=== PATIENT | female | born 1990 | race Caucasian/White ===

== ENCOUNTER 2023-03-07 15:03 | Outpatient (AMB) | payer BC, MEDICAID, SELFPAY ==
--- NOTE | 2023-03-07 15:15 | AM.OFFWIN_ITS ---
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 Patient is reporting itchiness and redness at the tip of her nose. She noticed it a few days ago. It is slowly spreading to the top of her nose. No nasal discharge. No recent piercings. Does not use or abuse cocaine. [facility] Medical History (Updated 03/07/23 @ 15:53 by Lorenzo Lugo MD) Seasonal allergies Surgical History (Updated 02/24/20 @ 14:45 by GEOVANNA Farah) No pertinent past surgical history Family History (Updated 02/24/20 @ 14:46 by GEOVANNA Farah) Father No problems noted. Mother No problems noted. Family/Other History of substance abuse FHx: mental illness Depression Social History Patient Tobacco Use Status: Never used Tobacco Physical Exam Vital Signs: Last Vital Signs Temp 97.8 F 03/07/23 15:17 Pulse 65 03/07/23 15:17 BP 118/70 03/07/23 15:17 Pulse Ox 99 03/07/23 15:17 BMI result Body Mass Index 21.8 HEENT Other: Nose: Erythematous area at the tip of the nose. Nontender. No vesicles or pustules seen. Assessment & Plan Assessment & Plan (1) Rash: Code(s): R21 - Rash and other nonspecific skin eruption Plan: Most likely allergic in nature. Prednisone given. Should there be blisters or pain symptoms occur, herpes infection should be considered. Coding Level of Care Code Est Pt Level 3 (22991) Diagnoses Rash R21
[2023-03-07 15:17] VITALS: BP 118/70; PULSE 65; TEMP 36.6; O2SAT 99; BMI 21.8
== END 2023-03-07 15:58 | disposition home or self-care (01) ==
PROVIDERS: Visit Provider Internal Medicine
DX: R21 Rash and other nonspecific skin eruption (principal)
CPT/HCPCS: 99213

== ENCOUNTER 2024-05-24 09:13 | Outpatient (AMB) | payer BC, MEDICAID, SELFPAY ==
--- NOTE | 2024-05-24 09:57 | MHC.OFFWIV ---
Intake Vital Signs 05/24/24 09:58 Weight 165 lb BP 108/64 Blood Pressure Location Rt brachial Position Sitting Pulse 108 H Pulse Source Pulse Oximeter Temp 100 F Temp Source Oral Pulse Oximetry (%) 98 Oxygen Delivery Method Room Air Intake Visit Reasons: EP Strep? Sore throat Intake Note: Patient here for sore throat, body aches, chills which started Friday night. Patient Tobacco Use Status: Never used Tobacco Allergies No Known Allergies Allergy (Verified 05/24/24 09:58) Do you need a note to return to daycare/school/sports/work: Yes HPI HPI Comments History of Present Illness Details History - The patient is a 33-year-old female presenting with suspected Strep throat. - Symptoms such as a headache and fever started 2 days ago, followed by chills and sore throat the next day, noted with white exudates on one side. - Denied significant cough or exposure to known individuals with Strep. - Recent travel was acknowledged, yet no direct exposure connections were made. Physical Exam General: Cooperative, healthy appearing, comfortable and no acute distress Orientation/consciousness: Patient oriented x3 Limitations: No limitations Head: Normal to inspection Ears: Right ear looks really red, but not infected. Hearing grossly normal bilaterally, external ears normal and TM's normal bilaterally Nose: Normal external nose present, Normal nares present and No nasal discharge present Face and sinus: Normal facial exam Mouth: Normal oral and palatal mucosa present and moist mucous membranes Throat: Yes tonsils normal, Yes uvula midline. Posterior oropharynx erythema. exudates noted right side oropharynx Eyes: Appearance normal, both eyes and all related structures Neck: slight lymphadenopathy Respiratory: Normal respiratory effort, able to speak in complete sentences, not a lot of coughing, no respiratory distress, not tachypneic, no tripod positioning and no use of accessory muscles Skin: No rashes or lesions noted Neuro: Patient oriented x3 Extremities: Normal to inspection and Yes no clubbing, cyanosis or edema PFSH Medical History (Updated 05/24/24 @ 10:15 by Alva Florez PA-C) Seasonal allergies Surgical History (Updated 02/24/20 @ 14:45 by Yvonne Ayon) No pertinent past surgical history Family History (Updated 02/24/20 @ 14:46 by Yvonne Ayon) Father No problems noted. Mother No problems noted. Family/Other History of substance abuse FHx: mental illness Depression Social History Patient Tobacco Use Status: Never used Tobacco Review of Systems Const All systems reviewed & are unremarkable except as noted in HPI and below Physical Exam Vital Signs: Last Vital Signs Temp 100 F 05/24/24 09:58 Pulse 108 H 05/24/24 09:58 BP 108/64 05/24/24 09:58 Pulse Ox 98 05/24/24 09:58 Oxygen Delivery Method Room Air 05/24/24 09:58 Assessment & Plan Assessment & Plan (1) Acute streptococcal pharyngitis: Code(s): J02.0 - Streptococcal pharyngitis Plan: Centor criteria is 4, 52-53% chance of strep therefore I will make a presumptive diagnosis of Streptococcal pharyngitis. Despite a negative rapid test due to the combination of patient's symptoms and clinical exam findings anc centor criteria. An antibiotic, Amoxicillin, is prescribed for ten days to address the infection. The patient confirmed no allergies to medications. A sick leave note for the following day will be provided, and the prescription has been sent electronically to the [facility] pharmacy. Recommendations include soothing throat remedies like cool liquids or hot tea with honey to alleviate discomfort. Patient was informed and verbally consented to the use of an ambient scribe for clinic note documentation during this visit Medications: New amoxicillin 500 mg PO Q12H 20 tabs 0RF Coding Level of Care Code New Pt Level 3 (98486) Diagnoses Acute streptococcal pharyngitis J02.0
[2024-05-24 09:58] VITALS: BP 108/64; PULSE 108; TEMP 37.7; O2SAT 98
== END 2024-05-24 10:20 | disposition home or self-care (01) ==
PROVIDERS: Visit Provider Physician Assistant
DX: J02.0 Streptococcal pharyngitis (principal); Z13.9 Encounter for screening, unspecified

== ENCOUNTER → 2024-05-24 09:13 | Outpatient (BNVA) | payer BC, MEDICAID, SELFPAY | PROVIDERS: Visit Provider Physician Assistant | DX: J02.0 Streptococcal pharyngitis (principal) | CPT/HCPCS: 87880 ==